=== PATIENT | male | born 1995 | race Caucasian/White ===

== ENCOUNTER 2019-10-25 22:09 | Emergency (ER) | payer SELFPAY ==
[2019-10-25] MEDS ORDERED: Proparacaine 0.5% Ophth Soln 15 ML Bottle EYELF ONE (22:45)
[2019-10-25] MEDS ORDERED: Fluorescein 1 MG Ophth Strip EYELF ONE (22:49)
[2019-10-25] MEDS ORDERED: Erythromycin Base 0.5% Ophth Oint 1 GM Tube EYELF ONE (23:01)
--- NOTE | 2019-10-25 23:08 | EDM.PDOC ---
ED HPI GENERAL MEDICAL PROBLEM - General Chief Complaint: Eye Problems Stated Complaint: SOMETHING IN LEFT EYE Time Seen by Provider: 10/25/19 22:46 Source of Information: Reports: Patient History Limitations: Reports: No Limitations - History of Present Illness INITIAL COMMENTS - FREE TEXT/NARRATIVE: This is a 24-year-old male. About 24 hours ago he was grinding a piece of metal on a stool and he did not realize or did not think he got anything in his eye but then his left eye started to bother him. He has been rubbing the eye and he thinks he has something in it. At the time he did not believe he got anything in it but is been bothering him some now he thinks he does. His vision is not changed both eyes are 20/40. He denies any other acute symptoms. He has had no drainage from the eye and no matting of the eyelid. Left Eye Pain Score (Numeric/FACES): 10 - Related Data Allergies Allergy/AdvReac Type Severity Reaction Status Date / Time No Known Allergies Allergy Verified 10/25/19 22:38 Home Meds: Home Meds . [No Known Home Meds] 10/25/19 [History] Past Medical History - Past Health History Medical/Surgical History: Denies Medical/Surgical History Social & Family History - Tobacco Use Smoking Status *Q: Current Every Day Smoker Years of Tobacco use: 6 Packs/Tins Daily: 0.5 - Caffeine Use Caffeine Use: Reports: Coffee, Soda - Recreational Drug Use Recreational Drug Use: No ED ROS GENERAL - Review of Systems Review Of Systems: See Below Constitutional: Denies: Fever, Chills HEENT: Reports: Eye Pain Respiratory: Reports: No Symptoms Cardiovascular: Reports: No Symptoms Endocrine: Reports: No Symptoms GI/Abdominal: Reports: No Symptoms : Reports: No Symptoms Musculoskeletal: Reports: No Symptoms Skin: Reports: No Symptoms Neurological: Reports: No Symptoms Psychiatric: Reports: No Symptoms ED EXAM GENERAL W FULL EYE - Physical Exam Exam: See Below Exam Limited By: No Limitations General Appearance: Alert, WD/WN, No Apparent Distress Eye Exam: Bilateral Eye: Other (He is somewhat inflamed. There is no exudates noted. I.e. everted the upper lid there is no foreign body underneath the lid. The lower cul-de-sac there is no foreign body noted. He does not appear to have any foreign body on the cornea that I can see. His anterior chamber is clear pupil is reactive. With a flouriscein stain he does have a small corneal abrasion at the 6 o'clock position just below the center of vision. No other acute findings are noted) Visual Acuity (R) 20/: 40 Visual Acuity (L) 20/: 40 Eyelids: Bilateral: Edema (He has some slight swelling of the upper lid due to rubbing his eye) Conjunctiva & Sclera: Bilateral: Other (Some inflammation of the conjunctiva from his rubbing the eye) Cornea Exam: Left: Corneal Abrasion Extraocular Movements: Bilateral: Intact Pupillary Size: Bilateral: 3 mm Pupillary Reaction: Bilateral: Brisk Anterior Chamber: Bilateral: Normal Appearance Ears: Normal External Exam Nose: Normal Inspection Throat/Mouth: Normal Lips, Normal Voice, No Airway Compromise Head: Normocephalic Neck: Supple Respiratory/Chest: No Respiratory Distress Back Exam: Full Range of Motion Extremities: Normal Inspection, Normal Range of Motion Neurological: Alert, Oriented Psychiatric: Normal Affect, Normal Mood Skin Exam: Warm, Dry Course - Vital Signs Last Recorded V/S: Last Vital Signs Temp 97.8 F 10/25/19 22:42 Pulse 88 10/25/19 22:42 Resp 20 10/25/19 22:42 BP 125/83 10/25/19 22:42 Pulse Ox 100 10/25/19 22:42 - Orders/Labs/Meds Orders: Active Orders 24 hr Category Date Time Status Communication Order [RC] STAT Care 10/25/19 23:02 Ordered Meds: Medications Discontinued Medications Generic Name Dose Route Start Last Admin Trade Name Pedro PRN Reason Stop Dose Admin Erythromycin 1 gm 10/25/19 23:01 Erythromycin 0.5% Ophth Oint EYELF 10/25/19 23:02 ONETIME ONE Fluorescein Sodium 1 mg 10/25/19 22:49 Ful-Nikia EYELF 10/25/19 22:50 ONETIME ONE Proparacaine HCl 2 ml 10/25/19 22:45 10/25/19 22:52 Proparacaine 0.5% Ophth Soln EYELF 10/25/19 22:46 2 drop ONETIME ONE Administration Departure - Departure Time of Disposition: 23:06 Disposition: Home, Self-Care 01 Condition: Good Clinical Impression: Corneal abrasion, left Qualifiers: Encounter type: initial encounter Qualified Code(s): S05.02XA - Injury of conjunctiva and corneal abrasion without foreign body, left eye, initial encounter Inflammation of conjunctiva Qualifiers: Conjunctivitis type: unspecified Laterality: left Qualified Code(s): H10.9 - Unspecified conjunctivitis - Discharge Information *PRESCRIPTION DRUG MONITORING PROGRAM REVIEWED*: Not Applicable *COPY OF PRESCRIPTION DRUG MONITORING REPORT IN PATIENT GT: Not Applicable Instructions: Corneal Abrasion, [id number] Referrals: PCP,None [Primary Care Provider] - Additional Instructions: Wear the eye patch until noon tomorrow and then take it off, do not rub your eye, use artificial tears if there is still irritation and use them as often as you need to, if you still have irritation by Monday follow-up with a online marketing specialist for reevaluation, return to the ER if needed Sepsis Event Note (ED) - Evaluation Sepsis Screening Result: No Definite Risk - Focused Exam Vital Signs: Vital Signs Temp Pulse Resp BP Pulse Ox 10/25/19 22:42 97.8 F 88 20 125/83 100 - My Orders Last 24 Hours: My Active Orders 10/25/19 23:02 Communication Order [RC] STAT - Assessment/Plan Last 24 Hours: My Active Orders 10/25/19 23:02 Communication Order [RC] STAT
== END 2019-10-25 23:22 | disposition home or self-care (01) ==
LOC: JD.ED 22:09
DX: S05.02XA Injury of conjunctiva and corneal abrasion without foreign body, left eye, initial encounter (principal); H10.9 Unspecified conjunctivitis; X58.XXXA Exposure to other specified factors, initial encounter
CPT/HCPCS: 99283; A9270